=== PATIENT | male | born 1955 | race Caucasian/White ===

== ENCOUNTER 2019-02-26 07:36 | Outpatient (CLI) | payer BC, SELFPAY ==
[2019-02-26 09:23] LABS: Anion Gap 9.7 mmol/L (3-11); BUN 16 mg/dL (7-18); CO2 29.3 mmol/L (21.0-32.0); CREATININE 1.07 mg/dL (0.70-1.30); Calcium 9.5 mg/dL (8.5-10.1); Chloride 100 mmol/L (98-107); Glucose 90 mg/dL (70-100); Potassium 4.2 mmol/L (3.5-5.1); Sodium 139 mmol/L (136-145); Uric Acid 6.5 mg/dL (3.5-7.2)
[2019-02-26 09:43] LABS: Cholesterol 264 mg/dL (50-200); HDL Cholesterol 44 mg/dL (40-60); LDL CHOLESTEROL 138 mg/dL (<100); Triglyceride 356 mg/dL (30-150)
== END 2019-02-26 07:56 ==
PROVIDERS: PCP Internal Medicine; Visit Provider Internal Medicine
DX: M10.9 Gout, unspecified (principal); I10 Essential (primary) hypertension
CPT/HCPCS: 36415; 80048; 80061; 83721; 84550

== ENCOUNTER 2019-02-26 09:00 | Outpatient (CLI) | payer BC, SELFPAY ==
--- NOTE | 2019-02-26 07:00 | DI.US_ITS ---
SYMPTOMS/DIAGNOSIS: AAA, I71.4 ABDOMINAL AORTIC ULTRASOUND: Distally the abdominal aorta measures 3.2 cm AP x 3.3 cm transverse. Maximum diameter proximally is 2.9 cm. The right common iliac artery measures 1.5 x 1.8 cm. The left common iliac artery measures 1.6 x 1.8 cm. IMPRESSION: Distal abdominal aortic aneurysm measuring 3.2 x 3.3 cm.
== END 2019-02-26 09:20 ==
PROVIDERS: PCP Internal Medicine; Visit Provider Internal Medicine
DX: I71.4 Abdominal aortic aneurysm, without rupture (principal)
CPT/HCPCS: 76775

== ENCOUNTER 2019-04-05 01:02 | Outpatient (CLI) | payer BC, SELFPAY ==
[2019-04-05] MEDS: Gadoterate meglumine 20 ML VIAL 17 ML IVP (10:47)
[2019-04-05] MEDS: Normal Saline Flush 10 ML SYR IVP (10:48)
--- NOTE | 2019-04-05 10:53 | DI.MRI_ITS ---
SYMPTOM/DIAGNOSIS: ASSESS CHARACTER OF SPINAL CORD LESION, G95.9 THORACIC SPINE MRI: MR examination of the thoracic spine was performed according to the usual protocol with additional pre and post contrast axial and sagittal imaging of the lower thoracic spine. Note is made of an apparent L 1 vertebral body hemangioma as noted on recent lumbar spine [place] [facility] [place] An area of apparent abnormal signal seen in the conus at the T 12 on the recent examination is not seen on today's examination. No enhancement at this area. No cord deformity. No cord signal abnormality in the region surveyed. No disc herniation, central canal spinal stenosis or neural foraminal stenosis identified in the thoracic region. CONCLUSION: Negative thoracic spine MRI. No evidence of mass lesion or enhancing lesion of the conus.
== END 2019-04-05 01:22 ==
PROVIDERS: PCP Internal Medicine; Visit Provider Orthopaedic Surgery
DX: G95.89 Other specified diseases of spinal cord (principal)
CPT/HCPCS: 72157

== ENCOUNTER 2020-02-11 08:18 | Outpatient (CLI) | payer BC, SELFPAY ==
[2020-02-11 10:14] LABS: Anion Gap 6.1 mmol/L (3-11); BUN 22 mg/dL (7-18); CO2 30.9 mmol/L (21.0-32.0); CREATININE 1.11 mg/dL (0.70-1.30); Calcium 9.2 mg/dL (8.5-10.1); Calculated LDL 123 mg/dL (<100); Chloride 103 mmol/L (98-107); Cholesterol 207 mg/dL (<200); Glucose 98 mg/dL (74-106); HDL Cholesterol 55 mg/dL (40-60); Potassium 4.5 mmol/L (3.5-5.1); Sodium 140 mmol/L (136-145); Triglyceride 146 mg/dL (<150)
[2020-02-11 10:25] LABS: Uric Acid 2.9 mg/dL (3.5-7.2)
== END 2020-02-11 08:38 ==
PROVIDERS: PCP Internal Medicine; Visit Provider Internal Medicine
DX: E78.00 Pure hypercholesterolemia, unspecified (principal); I10 Essential (primary) hypertension; M10.9 Gout, unspecified
CPT/HCPCS: 36415; 80048; 80061; 84550

== ENCOUNTER 2021-01-31 04:19 | Outpatient (CLI) | payer BC, SELFPAY ==
[2021-01-31 10:09] LABS: Iron 95 ug/dL (65-175)
[2021-01-31 10:10] LABS: ALT 35 U/L (16-63); AST 35 U/L (15-37); Albumin 3.5 g/dL (3.4-5.0); Alkaline Phosphatase 52 U/L (46-116); Anion Gap 5.4 mmol/L (3-11); BUN 31 mg/dL (7-18); Bilirubin, Total 0.5 mg/dL (0.2-1.0); CO2 28.6 mmol/L (21.0-32.0); CREATININE 1.1 mg/dL (0.70-1.30); Calcium 8.9 mg/dL (8.5-10.1); Calculated LDL 130 mg/dL (<100); Chloride 107 mmol/L (98-107); Cholesterol 221 mg/dL (<200); Glucose 102 mg/dL (74-106); HDL Cholesterol 51 mg/dL (40-60); Potassium 4.3 mmol/L (3.5-5.1); Sodium 141 mmol/L (136-145); Total Protein 6.5 g/dL (6.4-8.2); Triglyceride 202 mg/dL (<150)
[2021-01-31 10:19] LABS: Uric Acid 3.5 mg/dL (3.5-7.2)
== END 2021-01-31 04:20 | disposition home or self-care (01) ==
LOC: LBO 04:19
PROVIDERS: PCP Internal Medicine; Visit Provider Internal Medicine
DX: I10 Essential (primary) hypertension (principal); E78.00 Pure hypercholesterolemia, unspecified; M10.9 Gout, unspecified; G25.81 Restless legs syndrome; F10.10 Alcohol abuse, uncomplicated
CPT/HCPCS: 36415; 80053; 80061; 83540; 84550

== ENCOUNTER 2022-03-04 04:11 | Outpatient (CLI) | payer BC, SELFPAY ==
[2022-03-04 08:17] LABS: Anion Gap 8.2 mmol/L (3-11); BUN 31 mg/dL (7-18); CO2 29.8 mmol/L (21.0-32.0); CREATININE 1.4 mg/dL (0.70-1.30); Calcium 9.2 mg/dL (8.5-10.1); Calculated LDL 165 mg/dL (<100); Chloride 102 mmol/L (98-107); Cholesterol 258 mg/dL (<200); Estimated GFR 51.02 (mL/min/1.73m2); Glucose 108 mg/dL (74-106); HDL Cholesterol 59 mg/dL (40-60); Potassium 4.2 mmol/L (3.5-5.1); Sodium 140 mmol/L (136-145); Triglyceride 173 mg/dL (<150)
[2022-03-04 08:26] LABS: Uric Acid 3.6 mg/dL (3.5-7.2)
== END 2022-03-04 04:12 | disposition home or self-care (01) ==
LOC: LBO 04:11
PROVIDERS: PCP Internal Medicine; Visit Provider Internal Medicine
DX: E78.00 Pure hypercholesterolemia, unspecified (principal); I10 Essential (primary) hypertension; M1A.09X0 Idiopathic chronic gout, multiple sites, without tophus (tophi)
CPT/HCPCS: 36415; 80048; 80061; 84550

== ENCOUNTER 2022-05-06 03:30 | Outpatient (CLI) | payer BC, SELFPAY ==
[2022-05-06 08:15] LABS: BUN 25 mg/dL (7-18); CREATININE 1.3 mg/dL (0.70-1.30); Calcium 9.3 mg/dL (8.5-10.1); Calculated LDL 93 mg/dL (<100); Chloride 103 mmol/L (98-107); Cholesterol 174 mg/dL (<200); Estimated GFR 55.58 (mL/min/1.73m2); Glucose 103 mg/dL (74-106); HDL Cholesterol 57 mg/dL (40-60); Potassium 4.3 mmol/L (3.5-5.1); Sodium 142 mmol/L (136-145); Triglyceride 122 mg/dL (<150)
[2022-05-06 08:37] LABS: Uric Acid 5.8 mg/dL (3.5-7.2)
== END 2022-05-06 03:31 | disposition home or self-care (01) ==
LOC: LBO 03:30
PROVIDERS: PCP Internal Medicine; Visit Provider Internal Medicine
DX: E78.00 Pure hypercholesterolemia, unspecified (principal); I10 Essential (primary) hypertension; M10.9 Gout, unspecified
CPT/HCPCS: 36415; 80048; 80061; 84550

== ENCOUNTER 2023-06-12 02:58 | Outpatient (CLI) | payer MEDICARE, SELFPAY ==
[2023-06-12 11:44] LABS: ALT 48 U/L (16-63); AST 42 U/L (15-37); Albumin 3.9 g/dL (3.4-5.0); Alkaline Phosphatase 56 U/L (46-116); Anion Gap 7.7 mmol/L (3-11); BUN 25 mg/dL (7-18); Bilirubin, Total 0.6 mg/dL (0.2-1.0); CO2 28.3 mmol/L (21.0-32.0); CREATININE 1.4 mg/dL (0.70-1.30); Calcium 9.1 mg/dL (8.5-10.1); Chloride 103 mmol/L (98-107); Estimated GFR 55.78 (mL/min/1.73m2); Glucose 101 mg/dL (74-106); Potassium 4.3 mmol/L (3.5-5.1); Sodium 139 mmol/L (136-145); Total Protein 7.2 g/dL (6.4-8.2)
[2023-06-12 11:54] LABS: Calculated LDL 138 mg/dL (<100); Cholesterol 217 mg/dL (<200); HDL Cholesterol 57 mg/dL (40-60); Triglyceride 111 mg/dL (<150)
[2023-06-13 11:20] LABS: HIV-1/2 Ag & Ab Screen Negative (Negative)
[2023-06-13 11:22] LABS: Hepatitis C Ab w Rflx HCV PCR Negative (Negative)
== END 2023-06-12 02:59 | disposition home or self-care (01) ==
LOC: LBO 02:58
PROVIDERS: PCP Nurse Practitioner Adult Health; Visit Provider Nurse Practitioner Adult Health
DX: I10 Essential (primary) hypertension (principal); E78.2 Mixed hyperlipidemia; M10.9 Gout, unspecified; N18.31 Chronic kidney disease, stage 3a; Z11.4 Encounter for screening for human immunodeficiency virus [HIV]; Z11.59 Encounter for screening for other viral diseases
CPT/HCPCS: 36415; 80053; 80061; 86803; 87389; 84550

== ENCOUNTER 2023-11-18 02:36 | Outpatient (CLI) | payer MEDICARE, SELFPAY ==
[2023-11-18 07:33] LABS: ALT 42 U/L (16-63); AST 37 U/L (15-37); Albumin 3.8 g/dL (3.4-5.0); Alkaline Phosphatase 53 U/L (46-116); Anion Gap 5.3 mmol/L (3-11); BUN 23 mg/dL (7-18); Bilirubin, Total 0.6 mg/dL (0.2-1.0); CO2 30.7 mmol/L (21.0-32.0); CREATININE 1.4 mg/dL (0.70-1.30); Calcium 9.2 mg/dL (8.5-10.1); Chloride 104 mmol/L (98-107); Estimated GFR 55.43 (mL/min/1.73m2); Glucose 108 mg/dL (74-106); Potassium 4.2 mmol/L (3.5-5.1); Sodium 140 mmol/L (136-145)
== END 2023-11-18 02:37 | disposition home or self-care (01) ==
LOC: LBO 02:36
PROVIDERS: PCP Nurse Practitioner Adult Health; Visit Provider Nurse Practitioner Adult Health
DX: R74.01 Elevation of levels of liver transaminase levels (principal); I10 Essential (primary) hypertension; N18.31 Chronic kidney disease, stage 3a
CPT/HCPCS: 36415; 80053

== ENCOUNTER → 2024-02-06 00:43 | Outpatient (CLI) | payer MEDICARE, SELFPAY ==
--- NOTE | 2024-02-06 07:00 | DI.RAD_ITS ---
Exam(s) XR HAND RT COMPLETE XR WRIST RT COMPLETE EXAM: XR HAND RT COMPLETE and XR wrist RT complete CLINICAL HISTORY: CMC distal radius +pain since activity in Dec,?OA,h/o gout,M25.531,M79.64. TECHNIQUE: 2D digital imaging was performed of the right wrist and hand. Six images were obtained. AP, lateral and oblique views were obtained. COMPARISON: CR XR WRIST RT COMPLETE from 02/06/2024 FINDINGS: BONES: No acute fracture is present. No bony destructive lesion is seen. JOINTS: No dislocation present. Degenerative changes are seen in the hand and wrist characterized by joint space narrowing and osteophytes. The findings are most marked at the DIP joint of the 3rd/midd le finger and the 1st CMC joint. No erosions are seen. There is also joint space narrowing and oste ophytes seen at the 1st MCP joint. SOFT TISSUE: There is a 2 mm linear density in the soft tissues in the distal 3rd finger. This does not appear to be related to the patient's current clinical history. IMPRESSION: Osteoarthritis of the hand and wrist. DATA REPOSITORY: RADIATION DOSE DELIVERED:
== END ==
PROVIDERS: PCP Nurse Practitioner Adult Health; Visit Provider Nurse Practitioner Adult Health
DX: M19.041 Primary osteoarthritis, right hand (principal)
CPT/HCPCS: 73110; 73130

== ENCOUNTER → 2024-04-19 13:05 | Outpatient (BNVA) | payer MEDICARE, SELFPAY | PROVIDERS: PCP Nurse Practitioner Adult Health; Referring Provider Nurse Practitioner Adult Health; Visit Provider Student in an Organized Health Care Education/Training Program | DX: M18.11 Unilateral primary osteoarthritis of first carpometacarpal joint, right hand (principal) | CPT/HCPCS: 99203 ==

== ENCOUNTER 2024-07-29 04:21 | Outpatient (CLI) | payer MEDICARE, SELFPAY ==
[2024-07-29 08:04] LABS: ALT 35 U/L (16-63); AST 44 U/L (15-37); Albumin 3.8 g/dL (3.4-5.0); Alkaline Phosphatase 44 U/L (46-116); Anion Gap 7.5 mmol/L (3-11); BUN 24 mg/dL (7-18); Bilirubin, Total 0.47 mg/dL (0.2-1.0); CO2 26.5 mmol/L (21.0-32.0); CREATININE 1.4 mg/dL (0.70-1.30); Calcium 9.4 mg/dL (8.5-10.1); Chloride 103 mmol/L (98-107); Estimated GFR 55.09 (mL/min/1.73m2); Glucose 103 mg/dL (74-106); Potassium 4.6 mmol/L (3.5-5.1); Sodium 137 mmol/L (136-145); Total Protein 7.2 g/dL (6.4-8.2); Uric Acid 5.5 mg/dL (3.5-7.2)
[2024-07-29 09:12] LABS: Calculated LDL 102 mg/dL (<100); Cholesterol 190 mg/dL (<200); HDL Cholesterol 71 mg/dL (40-60); Triglyceride 89 mg/dL (<150)
== END 2024-07-29 04:22 | disposition home or self-care (01) ==
LOC: LBO 04:21
PROVIDERS: Absent Provider Nurse Practitioner Adult Health; PCP Nurse Practitioner Adult Health; Referring Provider Nurse Practitioner Adult Health; Visit Provider Nurse Practitioner Adult Health
DX: E78.2 Mixed hyperlipidemia (principal); K21.00 Gastro-esophageal reflux disease with esophagitis, without bleeding; I10 Essential (primary) hypertension; G25.81 Restless legs syndrome
CPT/HCPCS: 36415; 80053; 80061; 82728; 84550

== ENCOUNTER → 2024-11-18 15:00 | Outpatient (BNVA) | payer MEDICARE, SELFPAY | PROVIDERS: PCP Nurse Practitioner Adult Health; Referring Provider Nurse Practitioner Adult Health; Visit Provider Nurse Practitioner Adult Health | DX: G56.03 Carpal tunnel syndrome, bilateral upper limbs (principal) | CPT/HCPCS: 95910; 99215 ==

== ENCOUNTER 2025-04-27 02:22 | Outpatient (CLI) | payer MEDICARE, SELFPAY ==
[2025-04-27 10:02] LABS: ALT 39 U/L (16-63); AST 38 U/L (15-37); Albumin 4.1 g/dL (3.4-5.0); Alkaline Phosphatase 52 U/L (46-116); Anion Gap 6.4 mmol/L (3-11); BUN 26 mg/dL (7-18); Bilirubin, Direct 0.2 mg/dL (0.0-0.2); Bilirubin, Total 0.6 mg/dL (0.2-1.0); CO2 29.6 mmol/L (21.0-32.0); CREATININE 1.3 mg/dL (0.70-1.30); Calcium 9.3 mg/dL (8.5-10.1); Chloride 105 mmol/L (98-107); Estimated GFR 60.21 (mL/min/1.73m2); Glucose 106 mg/dL (74-106); Potassium 4.6 mmol/L (3.5-5.1); Sodium 141 mmol/L (136-145); Total Protein 7.3 g/dL (6.4-8.2)
[2025-04-28 14:03] LABS: Lab Add On Test DONE
[2025-04-28 14:16] LABS: Calculated LDL 103 mg/dL (<100); Cholesterol 201 mg/dL (<200); HDL Cholesterol 66 mg/dL (>or=40); Triglyceride 163 mg/dL (<150)
[2025-04-28 14:25] LABS: Uric Acid 5.3 mg/dL (3.5-7.2)
== END 2025-04-27 02:23 | disposition home or self-care (01) ==
LOC: LBO 02:22
PROVIDERS: PCP Nurse Practitioner Adult Health; Visit Provider Nurse Practitioner Adult Health
DX: I10 Essential (primary) hypertension (principal); N18.31 Chronic kidney disease, stage 3a; R74.01 Elevation of levels of liver transaminase levels; M1A.09X0 Idiopathic chronic gout, multiple sites, without tophus (tophi); E78.2 Mixed hyperlipidemia
CPT/HCPCS: 36415; 80048; 80061; 80076; 84550